=== PATIENT | female | born 1975 | race African-American/Black ===

== ENCOUNTER → 2020-12-24 | Day surgery (SDC) | payer MEDICARE ==
[~2020-12-24] VITALS: Ht 154.9 cm; Wt 100.7 kg
[~2020-12-24] MED LIST: BENADRYL25 MG PO; HYDROXYZINE HCL25 MG PO; LINZESS290 MCG PO; OXYBUTYNIN CHLO15 MG PO; OZEMPIC1 MG/0.71 SC; PERCOCET 10-321 EACH PO; ZEPOSIA0.92 MG PO
[2020-12-24 08:24] LABS: BASOPHIL 0.1 % (0-2); EOSINOPHIL 1.3 % (0-5); HCT 38.6 % (37.0-47.0); HGB 12.4 g/dl (12.5-16.0); MCH 29.6 pg (25.0-31.0); MCHC 32.1 g/dL (32.0-36.0); MCV 92.1 fL (78.0-100.0); MONOCYTE 15.5 % (0-12); MPV 9.5 fL (6.0-9.5); NEUTROPHIL 78.8 % (41-80); NRBC 0; PLT 274 K/uL (150-400); RBC 4.19 M/uL (4.20-5.40); WBC 6.8 K/uL (4.0-10.5)
[2020-12-24 08:35] LABS: INR 0.99 (0.9-1.2); PROTHROMBIN TIME 12.5 SECONDS (11.8-13.4); PTT 31.8 SECONDS (24.4-34.7)
[2020-12-24 08:54] LABS: ALBUMIN 3.3 g/dL (3.4-5.0); BILIRUBIN - TOTAL 0.4 mg/dL (0.2-1.0); BUN/CREAT RATIO (CALC) 13.9 RATIO; CREATININE 0.72 mg/dL (0.51-0.95); GLOBULIN (CALCULATION) 2.6 g/dL; POTASSIUM 4.5 mmol/L (3.5-5.1); TOTAL PROTEIN 5.9 g/dL (6.4-8.2)
== END | disposition home or self-care (01) ==
LOC: FAS 06:34
PROVIDERS: Oral & Maxillofacial Surgery
DX: K02.9 Dental caries, unspecified (principal); K04.7 Periapical abscess without sinus; G35 Multiple sclerosis; J45.909 Unspecified asthma, uncomplicated; E66.01 Morbid (severe) obesity due to excess calories; Z68.41 Body mass index [BMI] 40.0-44.9, adult; Z79.899 Other long term (current) drug therapy; Z88.5 Allergy status to narcotic agent; Z88.8 Allergy status to other drugs, medicaments and biological substances
CPT/HCPCS: 36415; 71045; 80053; 85025; 85610; 85730; 93005; J1100; J2250; J2704; J3010; J7120